=== PATIENT | male | born 1990 | race Caucasian/White ===

== ENCOUNTER 2021-01-30 18:22 | Observation (INO) ==
[2021-01-30 19:08] LABS: Basophils # 0.1 K/mcL (0.0-0.2); Basophils % 0.5 %; Eosinophils # 0.2 K/mcL (0.0-0.6); Hematocrit 42.8 % (37.5-50.1); Hemoglobin 14.4 g/dL (12.9-16.9); Immature Granulocytes % 0.7 % (0-4); Lymphocytes # 3.3 K/mcL (0.6-4.6); Lymphocytes % 19.1 %; Mean Corpuscular HGB Conc 33.6 g/dL (31.6-35.5); Mean Corpuscular Hemoglobin 30.4 pg (28.0-33.3); Mean Corpuscular Volume 90.5 fL (83.0-100.0); Mean Platelet Volume 8.2 fL (9.4-12.4); Monocytes # 0.9 K/mcL (0.0-1.3); Monocytes % 4.9 %; Neutrophils # 12.8 K/mcL (1.6-8.9); Platelet Count 388 K/mcL (140-400); Red Blood Count 4.73 M/mcL (4.19-5.50); Red Cell Distribution Width 14.6 % (11.5-14.5); Segmented Neutrophils % 73.8 %; White Blood Count 17.4 K/mcL (4.3-11.1)
[2021-01-30 19:20] LABS: Bilirubin,Urine Negative (Negative); Blood,Urine Negative (Negative); Clarity,Urine Clear (Clear); Color,Urine Colorless (Yellow); Glucose,Urine (UA) Normal (Normal); Ketones,Urine Negative (Negative); Leukocyte Esterase,Urine Negative (Negative); Nitrite,Urine Negative (Negative); PH,Urine 6.5 pH Units (5.0-8.0); Protein,Urine Negative (Neg-Trace); Specific Gravity,Urine 1.006 (1.010-1.025); Urobilinogen,Urine Normal (Normal)
[2021-01-30 19:27] LABS: Acetaminophen < 10 mcg/mL (10-20); BUN/Creatinine Ratio 9 (6-26); Blood Urea Nitrogen 9 mg/dL (6-20); Carbon Dioxide 27 mEq/L (23-29); Chloride 104 mEq/L (98-107); Cholesterol 201 mg/dL (< 200); Ethanol 39 mg/dL (Less than 10); Glucose 92 mg/dL (70-105); HDL Cholesterol 68 mg/dL (40-59); LDL Cholesterol,Calculated 67 mg/dL (< 100); Osmolality,Calculated 282 (280-300); Potassium 3.9 mEq/L (3.5-5.1); Salicylate < 2.5 mg/dL (15.0-30.0); Sodium 137 mEq/L (136-145); Triglycerides 330 mg/dL (< 150); eGFR For African Americans > 60 (> 60); eGFR For Non-African Americans > 60 (> 60)
[2021-01-30 19:50] LABS: Amphetamine Screen,Urine Positive ng/mL (Cutoff=1000); Barbiturate Screen,Urine Negative ng/mL (Cutoff=200); Benzodiazepines Screen,Urine Negative ng/mL (Cutoff=200); Cannabinoid Screen,Urine Negative ng/mL (Cutoff = 50); Cocaine Screen,Urine Positive ng/mL (Cutoff= 300); Opiate Screen,Urine Negative ng/mL (Cutoff=300); Phencyclidine Screen,Urine Negative ng/mL (Cutoff=25)
[2021-01-30] MEDS ORDERED: Ziprasidone 10 MG in Water for inj. (sterile) 0.5 ML IM ONE (19:53)
[2021-01-30] MEDS ORDERED: *HR* LORazepam 1 MG TABLET PO ONE (20:28)
[2021-01-30 20:37] LABS: Estimated Average Glucose 117 mg/dl; Hemoglobin A1C 5.7 %
[2021-01-30 20:54] LABS: Chlamydia Trachomatis DNA Ur NOT DETECTED (Not Detect)
[2021-01-30] MEDS ORDERED: Ibuprofen 400 MG TABLET PO PRN (22:58)
[2021-01-30] MEDS ORDERED: Haloperidol Lactate 5 MG/ML VIAL IM PRN (22:58)
[2021-01-30] MEDS ORDERED: *HR* LORazepam 1 MG TABLET PO PRN (22:58)
[2021-01-30] MEDS ORDERED: haloperidoL 5 MG TABLET PO PRN (22:58)
[2021-01-30] MEDS ORDERED: traZODone 50 MG TABLET PO PRN (22:58)
[2021-01-30] MEDS ORDERED: *HR* LORazepam 2 MG/ML VIAL IM PRN (22:58)
[2021-01-30] MEDS ORDERED: Acetaminophen 325 MG TABLET PO PRN (22:58)
[2021-01-31] MEDS: hydrOXYzine pamoate 25 MG CAPSULE PO PRN ×2 (00:45→13:59)
[2021-01-31 08:58] VITALS: BP 124/84
[2021-01-31] MEDS ORDERED: Nicotine 21 MG PATCH.TD24 TD SCH (11:00)
== END 2021-01-31 15:00 ==
LOC: EMEROOARM 18:22 → INTOOBSV 22:54 → 1ANU 22:54
PROVIDERS: ADMIT Psychiatry & Neurology Psychiatry; ATTEND Psychiatry & Neurology Psychiatry